=== PATIENT | female | born 2005 | race Caucasian/White ===

== ENCOUNTER 2025-02-28 08:52 | Emergency (ER) | payer OTHER, SELFPAY ==
[2025-02-28 08:54] VITALS: BP 115/80
--- NOTE | 2025-02-28 10:22 | ED.GENMED ---
History of Present Illness
General
Chief Complaint: Extremity Pain (non-traumatic)
Source: patient
Exam Limitations: none
Time Seen by Provider: 02/28/25 10:09
History of Present Illness
History of Present Illness:
See MDM
Past History
Past History
ED Past Medical History: None
ED Past Surgical History: None
Social History
Tobacco: Non-smoker
Alcohol: None
Phy Exam
Physical Exam
Physical Exam:
See MDM
Course
Vital Signs
Initial and Last Documented VS:
Initial Vital Signs
Temp Pulse Resp BP Pulse Ox
98.6 F 82 18 115/80 100
02/28/25 08:54 02/28/25 08:54 02/28/25 08:54 02/28/25 08:54 02/28/25 08:54
Last Documented Vital Signs
Temp Pulse Resp BP Pulse Ox
98.6 F 82 18 115/80 100
02/28/25 08:54 02/28/25 08:54 02/28/25 08:54 02/28/25 08:54 02/28/25 10:24
MDM/Problems Addressed
Differential Diagnosis Includes:
Note:
CHIEF COMPLAINT(S)
Worsening pain and difficulty walking due to a cyst.
HISTORY OF PRESENT ILLNESS
The patient is a 19-year-old female presenting with worsening pain and difficulty walking attributed to a known ganglion cyst. The issue reportedly began around one and a half years ago and progressively worsened, with increased soreness following
periods of standing or physical activity. The patient is employed as a captain waiter/waitress, resulting in prolonged periods on her feet, which exacerbates the soreness. The cyst was last imaged in 2023 with an MRI showing a ganglion cyst approximately 2.6
centimeters in size. The patient has been experiencing increased pain over the past few days, despite regular use of ibuprofen (Motrin) for analgesia. The patient describes difficulty extending or flexing the affected area.
ADDITIONAL HISTORY OBTAINED FROM SOURCES OTHER THAN THE PATIENT
According to family, the patient explored treatment options with a Physician Government Relations Analyst at [facility]. The treatment plan involved either observational management or potential aspiration of the cyst should the condition worsen.
SOCIAL DETERMINANTS AFFECTING HEALTH
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
REVIEW OF SYSTEMS
- Musculoskeletal: Pain with walking, difficulty with limb extension and flexion, tenderness over the cyst area.
PHYSICAL EXAM
General: Well appearing and non-toxic
HEENT: protecting airway
Neck: appears supple
CV: No evidence of cyanosis
Resp: No accessory muscle use
Abd: Non-distended
Extremities: No deformities. No palpable cyst to posterior right knee. No skin changes
Neuro: alert
Psych: Normal affect
Skin: Intact
PLAN
Discussion with orthopedic services to explore potential aspiration of the cyst. Consider obtaining an updated ultrasound to assess the current state of the cyst. Continued use of ibuprofen (Motrin) advised, along with minimizing standing periods
where feasible.
DIFFERENTIAL DIAGNOSIS
The Differential Diagnosis includes, in no particular order and is not limited to:
1. Ganglion cyst
2. Synovial cyst
3. Tenosynovitis
4. Lipoma
5. Rheumatoid arthritis
6. Osteoarthritis
7. Bursitis
8. Tendonitis
9. Nerve compression syndrome
10. Bone spurs
MANAGEMENT OF THE PATIENTS CARE WAS DISCUSSED WITH
Case was discussed with orthopedics, who agreed that drainage of the ganglion cyst is better suited in the outpatient setting.
PATIENT EDUCATION AND COUNSELING
Both the patient and her father were present during the discussion of the management plan. They are comfortable with the plan to follow up with orthopedics and have been informed about return precautions.
FOLLOW-UP INSTRUCTIONS
The patient is advised to keep the appointment with the orthopedic office today.
MEDICATION RECONCILIATION
The patient has been using ibuprofen (Motrin) for analgesia.
MEDICAL DECISION MAKING
1. Number & Complexity of Problems: Chronic conditions affecting care include a ganglion cyst causing significant pain and functional limitation.
2. Data Reviewed: Consultation with orthopedic office arranged.
3. Risk: Consideration of outpatient management with orthopedics due to the non-emergent nature of the ganglion cyst.
*Pulse Oximetry
SaO2: 100
Oxygen Mode of Delivery: Room air
Patient hypoxic: no
*Critical Care Note
Total Time (30-74mins, 75-104mins- exclusive of procedures): Not Applicable
ED Attending Note
-
Portions of this chart may have been created with voice recognition software.� Occasional wrong word or��sound alike� substitutions may have occurred due to the inherent limitations of voice recognition software.
Discharge Plan
Departure
Patient Disposition: Home (Routine Discharge)
Date of Disposition: 02/28/25
Time of Disposition: 11:08
Patient with high blood pressure during this ER visit?: No
Discharge Problem:
Acute knee pain
Referrals:
UNKNOWN - PT DOES,NOT KNOW [Family Provider]
Activity Restrictions/Additional Instructions:
Please keep the orthopedic appointment today at 3:15 PM at the [place] office
Interventions
Interventions:
ED-Musculoskeletal Assessment Last Done: 02/28/25 11:00
Discharge Date and Time
Print Language: NORWEGI[place]
== END 2025-02-28 11:35 | disposition home or self-care (01) ==
LOC: EMR 08:52
PROVIDERS: EMERGENCY PHYSICIAN Student in an Organized Health Care Education/Training Program
DX: M25.561 Pain in right knee (principal); R26.2 Difficulty in walking, not elsewhere classified; M67.461 Ganglion, right knee
CPT/HCPCS: 99282